=== PATIENT | male | born 1990 | race Hispanic/Latino ===

== ENCOUNTER 2018-02-12 17:46 | Emergency (ER) | payer BC ==
[2018-02-12 18:33] VITALS: BP 122/64; PULSE 85; RESP 16; TEMP 98.5; O2SAT 98
--- NOTE | 2018-02-12 19:40 | ED PDOC ---
Lower Extremity Pain/Injury Time Seen by Provider: 02/12/18 18:45 Chief Complaint (Nursing): Lower Extremity Problem/Injury Chief Complaint (Provider): Right ankle pain History Per: Patient History/Exam Limitations: no limitations Onset/Duration Of Symptoms: Days Current Symptoms Are (Timing): Still Present Additional Complaint(s): 27yo male, otherwise well, comes to ER for evaluation of right ankle injury s/p twisting it 2 days ago. Patient states he missed a step while walking off the curb and twisted his ankle; he states he was traveling so was unable to seek medical attention at that time. Patient has not taken anything for pain. Otherwise, denies any weakness, numbness or tingling to his foot. PMD: None - Ankle/Foot Description Of Injury: Twisted Past Medical History Reviewed: Historical Data, Nursing Documentation, Vital Signs Vital Signs: Last Vital Signs Temp 98.5 F 02/12/18 18:32 Pulse 85 02/12/18 18:32 Resp 16 02/12/18 18:32 BP 122/64 02/12/18 18:32 Pulse Ox 98 02/12/18 18:32 - Medical History PMH: No Chronic Diseases - Surgical History Surgical History: No Surg Hx - Family History Family History: States: No Known Family Hx - Allergies Allergies/Adverse Reactions: Allergies Allergy/AdvReac Type Severity Reaction Status Date / Time No Known Allergies Allergy Verified 02/12/18 18:30 Review of Systems ROS Statement: Except As Marked, All Systems Reviewed And Found Negative Musculoskeletal: Positive for: Foot Pain (right ankle and foot pain) Neurological: Negative for: Weakness, Numbness Physical Exam - Reviewed Nursing Documentation Reviewed: Yes Vital Signs Reviewed: Yes - Physical Exam Appears: Positive for: Non-toxic, No Acute Distress Head Exam: Positive for: ATRAUMATIC, NORMAL INSPECTION, NORMOCEPHALIC Skin: Positive for: Normal Color Eye Exam: Positive for: Normal appearance Pulses-Dorsalis Pedis (R): 2+ Extremity: Positive for: Tenderness (tenderness to bilateral malleolus on right foot; tenderness to right lateral foot.), Capillary Refill (< 2 seconds), Swelling (swelling noted to right ankle and foot), Other (distal sesnations intactt). Negative for: Deformity Neurologic/Psych: Positive for: Alert, Oriented. Negative for: Motor/Sensory Deficits - ECG O2 Sat by Pulse Oximetry: 98 (RA) Pulse Ox Interpretation: Normal Medical Decision Making Medical Decision Making: Impression: Right ankle injury sprain vs. fracture Plan: * XR Right ankle * XR Right foot Patient declined pain medications. 2004 XR's reviewed and no fractures or dislocations noted. Patient placed in an ankle immobilizer and instructed to follow up with electrical engineering draftsperson. Scribe Attestation: Documented by Minerva Bassett acting as a scribe for DAREK Burgess. Provider Attestation: All medical record entries made by the Scribe were at my direction and personally dictated by me. I have reviewed the chart and agree that the record accurately reflects my personal performance of the history, physical exam, medical decision making, and the department course for this patient. I have also personally directed, reviewed, and agree with the discharge instructions and disposition. Disposition - Clinical Impression Clinical Impression: Ankle sprain - Disposition Referrals: Jerry Rangel DPM [[facility]] - Disposition: Routine/Home Disposition Time: 20:18 Condition: STABLE Instructions: Ankle Sprain Forms: [employer] ([employer]), [facility] ED School/Work Excuse
--- NOTE | 2018-02-13 09:50 | RAD ---
Date of service: 02/12/2018 PROCEDURE: Right Ankle Radiographs. HISTORY: ankle pain, twisted COMPARISON: None FINDINGS: BONES: Bone alignment and mineralization are normal. There is no acute displaced fracture or bone destruction. JOINTS: Normal. Ankle mortise maintained. Talar dome intact SOFT TISSUES: There is moderate lateral soft tissue swelling OTHER FINDINGS: None. IMPRESSION: No acute displaced fracture or dislocation. Moderate lateral soft tissue swelling.
--- NOTE | 2018-02-13 09:50 | RAD ---
Date of service: 02/12/2018 PROCEDURE: Right Foot Radiographs. HISTORY: right foot pain COMPARISON: None. FINDINGS: BONES: Bone alignment and mineralization are normal. There is no acute displaced fracture or bone destruction. JOINTS: Normal. SOFT TISSUES: Normal. OTHER FINDINGS: None. IMPRESSION: No acute fracture or dislocation.
== END 2018-02-12 20:20 | disposition home or self-care (01) ==
LOC: H.ER 17:46
DX: S93.401A Sprain of unspecified ligament of right ankle, initial encounter (principal); X50.1XXA Overexertion from prolonged static or awkward postures, initial encounter